=== PATIENT | female | born 1940 | race Caucasian/White ===

== ENCOUNTER 2025-07-08 10:19 | Outpatient (CLI) | payer OTHER, MEDICAID | END 2025-07-08 10:20 | disposition home or self-care (01) | LOC: SCSBT 10:19 | PROVIDERS: ATTEND Nurse Practitioner Family | DX: Z78.0 Asymptomatic menopausal state (principal); M85.851 Other specified disorders of bone density and structure, right thigh; M85.852 Other specified disorders of bone density and structure, left thigh | CPT/HCPCS: 77080 ==